=== PATIENT | female | born 1990 | race Caucasian/White ===

== ENCOUNTER 2017-06-22 05:31 | Day surgery (SDC) | payer OTHER ==
[~2017-06-22] VITALS: Ht 162.6 cm; Wt 77.0 kg
[~2017-06-22 05:31] MED LIST: ALEVE220 MG PO; CELEBREX200 MG PO; FLEXERIL10 MG PO; HYDROCODON-ACE1 EAC7 PO; MOTRIN IB200 MG PO; PAIN RELIEVER325 MG PO; Relafen PO; TRINESSA1 EACH PO; TYLENOL COLD H1 EAC5 PO
[2017-06-22 06:15] VITALS: BP 142/86
[2017-06-22] MEDS ORDERED: NORCO 5/3251 TABLET PO (08:07)
[2017-06-22 09:00] VITALS: BP 114/74
[2017-06-22 09:38] VITALS: BP 112/71
== END 2017-06-22 09:43 | disposition home or self-care (01) ==
LOC: SDC 05:31
PROC: 0UBC7ZX Excision of Cervix, Via Natural or Artificial Opening, Diagnostic (ICD-10-PCS; principal; 2017-06-22)
DX: N87.0 Mild cervical dysplasia (principal); A63.0 Anogenital (venereal) warts; Z98.84 Bariatric surgery status; Z87.891 Personal history of nicotine dependence; Z83.3 Family history of diabetes mellitus; Z82.49 Family history of ischemic heart disease and other diseases of the circulatory system; Z84.1 Family history of disorders of kidney and ureter
CPT/HCPCS: 88305; 88307; 88342 TC; J1100; J1885; J2250; J2405; J2765; J3010